=== PATIENT | female | born 1970 | race African-American/Black ===

== ENCOUNTER 2017-02-08 09:33 | Emergency (ER) | payer OTHER ==
[~2017-02-08] VITALS: Ht 162.6 cm; Wt 79.5 kg
[2017-02-08] MEDS ORDERED: KETOROLAC TROMETHAMINE 30 MG/ML VIAL IVP ONE (10:00)
[2017-02-08] MEDS ORDERED: MORPHINE SULFATE 4 MG/ML SYRINGE IVP ONE (10:00)
[2017-02-08 11:38] VITALS: BP 139/89
== END 2017-02-08 11:39 | disposition home or self-care (01) ==
LOC: EMS 09:35
DX: G89.29 Other chronic pain (principal); M54.9 Dorsalgia, unspecified; F41.9 Anxiety disorder, unspecified
CPT/HCPCS: 96372; 99284; J1885; J2270

== ENCOUNTER 2017-12-12 21:41 | Emergency (ER) | payer OTHER ==
[~2017-12-12] VITALS: Ht 160 cm; Wt 80.0 kg
[2017-12-12] MEDS ORDERED: ALBU8HFA IH (21:47)
[2017-12-12] MEDS ORDERED: PredniSONE 20 MG TABLET PO ONE (23:45)
[2017-12-12] MEDS ORDERED: ACETAMINOPHEN 325 MG TABLET PO ONE (23:45)
[2017-12-13 00:15] VITALS: BP 132/79
== END 2017-12-13 00:45 | disposition home or self-care (01) ==
LOC: EMS 21:42
DX: J68.0 Bronchitis and pneumonitis due to chemicals, gases, fumes and vapors (principal); F41.9 Anxiety disorder, unspecified; F17.210 Nicotine dependence, cigarettes, uncomplicated
CPT/HCPCS: 70360; 71046; 99284; J7512

== ENCOUNTER 2022-08-16 17:38 | Emergency (ER) | payer OTHER ==
[~2022-08-16] VITALS: Ht 162.6 cm; Wt 77.7 kg
[~2022-08-16 17:38] MED LIST: ALBU8HFA IH
[2022-08-16 19:57] VITALS: BP 155/100
== END 2022-08-16 20:28 | disposition home or self-care (01) ==
LOC: EMS 17:38
DX: M25.572 Pain in left ankle and joints of left foot (principal); F41.9 Anxiety disorder, unspecified; G89.29 Other chronic pain; M54.50 Low back pain, unspecified; F17.210 Nicotine dependence, cigarettes, uncomplicated; F12.90 Cannabis use, unspecified, uncomplicated; Z98.890 Other specified postprocedural states
CPT/HCPCS: 99283

== ENCOUNTER 2025-08-01 19:23 | Emergency (ER) | payer OTHER ==
[~2025-08-01] VITALS: Ht 162.6 cm; Wt 54.5 kg
[~2025-08-01 19:23] MED LIST changes: +ALBU18HF12 IH; -ALBU8HFA IH
[2025-08-01 19:30] VITALS: TEMP 98.8
[2025-08-01 20:30] VITALS: BP 134/78; PULSE 91; RESP 17; O2SAT 99
== END 2025-08-01 23:56 | disposition home or self-care (01) ==
LOC: EMS 19:23
DX: S70.01XA Contusion of right hip, initial encounter (principal); F17.210 Nicotine dependence, cigarettes, uncomplicated; F12.90 Cannabis use, unspecified, uncomplicated; G89.29 Other chronic pain; M25.561 Pain in right knee; W19.XXXA Unspecified fall, initial encounter; Y93.89 Activity, other specified; Y92.89 Other specified places as the place of occurrence of the external cause; Y99.8 Other external cause status
CPT/HCPCS: 73502; 99284

== ENCOUNTER 2025-09-27 19:46 | Observation (INO) | payer OTHER ==
[~2025-09-27] VITALS: Ht 167.6 cm; Wt 65.9 kg
[2025-09-27 02:15] VITALS: BP 160/87; PULSE 60; RESP 18; TEMP 98.2; O2SAT 98
[2025-09-27 20:42] LABS: PLATELET COUNT (AUTO) 328 K/uL (150-450); RED BLOOD CELL COUNT(AUTO) 4.20 MIL/uL (4.00-5.20); RED CELL DISTRIBUTION WIDTH 14.3 % (11.5-14.5); WHITE BLOOD COUNT (AUTO) 9.5 K/uL (4.5-11.0)
[2025-09-27 20:45] LABS: APPEARANCE,URINE CLEAR (CLEAR); GLUCOSE, URINE (UA) NEGATIVE (NEGATIVE); LEUKOCYTE ESTERASE ,URINE NEGATIVE (NEGATIVE); NITRATE,URINE NEGATIVE (NEGATIVE); OCCULT BLOOD,URINE TRACE (NEGATIVE); SPECIFIC GRAVITIY, URINE 1.009 (1.003-1.030)
[2025-09-27 20:51] LABS: CALCIUM, TOTAL 9.4 mg/dL (8.8-10.5); CREATININE 0.49 mg/dL (0.60-1.30); GLOMERULAR FILTR. RATE CALC > 60 mL/min (>60); GLUCOSE,RANDOM 110 mg/dL (70-110); SODIUM SERUM 140 mmol/L (136-145); UREA NITROGEN, BLOOD 6 mg/dL (7-18)
[2025-09-27 21:00] LABS: SQUAMOUS EPITHELIAL CELL,UR Few /LPF (None Seen)
[2025-09-27 21:00] LABS: TROPONIN I-HIGH SENSITIVITY 6 ng/L (<51)
[2025-09-27] MEDS: ONDANSETRON HCL 4 MG/2 ML VIAL IVP ONE (21:37)
[2025-09-27] MEDS: ASPIRIN 325 MG TABLET PO ONE (21:37)
[2025-09-27] MEDS: SODIUM CHLORIDE 0.9% 1,000 ML IV ONE (21:37)
[2025-09-27] MEDS: MORPHINE SULFATE 4 MG/ML SYRINGE IVP ONE (21:38)
[2025-09-27] MEDS ORDERED: ZOLPIDEM TARTRATE 5 MG TABLET PO PRN (22:00)
[2025-09-27] MEDS ORDERED: ACETAMINOPHEN 325 MG TABLET PO PRN (22:00)
[2025-09-27] MEDS ORDERED: MAGNESIUM HYDROXIDE SUSPENSION 30 ML UDCUP PO PRN (22:00)
[2025-09-27] MEDS: LOSARTAN POTASSIUM 25 MG TABLET PO SCH (22:06)
[2025-09-28 00:01] LABS: TROPONIN I-HIGH SENSITIVITY 7 ng/L (<51)
[2025-09-28] MEDS: OxyCODONE HCL/ACETAMINOPHEN 5-325 MG TABLET PO PRN (02:18)
[2025-09-28 04:00] VITALS: BP 143/83; PULSE 60; RESP 18; TEMP 98.6; O2SAT 100
[2025-09-28 08:00] VITALS: BP 138/78; PULSE 62; RESP 18; TEMP 98.2; O2SAT 99
[2025-09-28] MEDS: ASPIRIN 81 MG CHEWABLE TABLET PO SCH (08:54)
[2025-09-28] MEDS: FAMOTIDINE 20 MG TABLET PO SCH (08:54)
[2025-09-28 11:00] VITALS: BP 136/80; PULSE 64; RESP 18; TEMP 98.1; O2SAT 98
[2025-09-28 14:28] LABS: TROPONIN I-HIGH SENSITIVITY 6 ng/L (<51)
[2025-09-28 15:00] VITALS: BP 152/92; PULSE 78; RESP 19; TEMP 97.8; O2SAT 100
[2025-09-28 17:02] LABS: ALCOHOL, URINE DRUG SCREEN NEGATIVE (NEGATIVE); AMPHET/METH SCREEN,URINE NEGATIVE (NEGATIVE); BARBITURATE SCREEN, URINE NEGATIVE (NEGATIVE); CANNABINOID SCREEN,URINE POSITIVE (NEGATIVE); COCAINE SCREEN,URINE NEGATIVE (NEGATIVE); METHADONE SCREEN, URINE NEGATIVE (NEGATIVE)
[2025-09-28 17:03] LABS: PH,URINE DRUG SCREEN 6.5 (5.0-8.0)
== END 2025-09-28 19:00 | disposition home or self-care (01) ==
LOC: EMS 19:46 → INTOOBSV 21:54 → EDH 21:54 → 5S 09-28 01:47
PROVIDERS: ADMIT Internal Medicine; ATTEND Internal Medicine
DX: R07.89 Other chest pain (principal); R11.10 Vomiting, unspecified; R42 Dizziness and giddiness; R53.1 Weakness; I10 Essential (primary) hypertension; K21.9 Gastro-esophageal reflux disease without esophagitis; F17.200 Nicotine dependence, unspecified, uncomplicated; Z79.899 Other long term (current) drug therapy; Z98.890 Other specified postprocedural states
CPT/HCPCS: 99219 ×2; 80048; 81001; 83880; 84484 ×2; 85025; 36415 ×2; 71045; 99285; 93005; 96374; 96375; 80307 ×9; 93306; J2270; J2405; J7030; G0378